=== PATIENT | male | born 1970 | race Caucasian/White ===

== ENCOUNTER 2021-04-26 16:40 | Emergency (ER) | payer MEDICAID ==
[~2021-04-26] VITALS: Ht 177.8 cm; Wt 95.3 kg
[2021-04-26] MEDS ORDERED: TETANUS-DIPTH-ACEL PERTUSSIS 0.5ML SYR Tdap IM ONE (18:00)
[2021-04-26 19:58] VITALS: BP 124/68
== END 2021-04-26 20:09 | disposition home or self-care (01) ==
LOC: ER 16:40
DX: S91.332A Puncture wound without foreign body, left foot, initial encounter (principal); W45.0XXA Nail entering through skin, initial encounter; Y93.89 Activity, other specified; Y92.89 Other specified places as the place of occurrence of the external cause; Y99.8 Other external cause status
CPT/HCPCS: 90471; 90715